=== PATIENT | male | born 1995 | race Caucasian/White ===

== ENCOUNTER 2018-06-06 10:00 | Emergency (ER) | payer OTHER ==
[2018-06-06] MEDS: NORCO, ANEXSIA 5/325MG TABLET (HYDROcodone/ACETAMINOPHEN) PO (10:17)
== END 2018-06-06 11:58 | disposition home or self-care (01) ==
LOC: M ED 10:00
DX: S76.011A Strain of muscle, fascia and tendon of right hip, initial encounter (principal); W01.0XXA Fall on same level from slipping, tripping and stumbling without subsequent striking against object, initial encounter; Y92.321 Football field as the place of occurrence of the external cause; Y93.61 Activity, american tackle football; F17.210 Nicotine dependence, cigarettes, uncomplicated
CPT/HCPCS: 76857

== ENCOUNTER 2018-07-12 22:27 | Emergency (ER) | payer OTHER ==
[2018-07-12] MEDS: MORPHINE 4 MG/ML 1ML VIAL/SYRINGE (J2270) IV (23:38)
== END 2018-07-13 00:57 | disposition home or self-care (01) ==
LOC: M ED 07-13 00:57
DX: S76.011A Strain of muscle, fascia and tendon of right hip, initial encounter (principal); S50.812A Abrasion of left forearm, initial encounter; S80.212A Abrasion, left knee, initial encounter; V28.4XXA Motorcycle driver injured in noncollision transport accident in traffic accident, initial encounter; Y92.410 Unspecified street and highway as the place of occurrence of the external cause
CPT/HCPCS: J2270

== ENCOUNTER 2019-08-14 12:23 | Emergency (ER) | payer OTHER ==
[~2019-08-14] VITALS: Ht 190.5 cm; Wt 85.5 kg
[~2019-08-14 12:23] MED LIST: NAPR-837 PO
--- NOTE | 2019-08-14 13:11 | REP ---
Right small finger series: Four views. History: Trauma. Findings: Four views of the right small finger demonstrate normal bones, joints and soft tissues. No fracture or subluxation is seen. No opaque foreign body noted. Impression: Negative radiographs of the right small finger. Electronically Signed by Chava Motley MD 08/14/2019 01:02 P
[2019-08-14 13:45] VITALS: BP 102/64
== END 2019-08-14 14:05 | disposition home or self-care (01) ==
LOC: M ED 12:23
DX: S63.636A Sprain of interphalangeal joint of right little finger, initial encounter (principal); X50.0XXA Overexertion from strenuous movement or load, initial encounter; Y93.61 Activity, american tackle football; Y92.321 Football field as the place of occurrence of the external cause

== ENCOUNTER → 2023-07-09 | Outpatient (REF) | LOC: M PLAIMG 09:19 | PROVIDERS: ATTEND Internal Medicine | DX: R06.02 Shortness of breath (principal) ==

== ENCOUNTER → 2023-09-15 | Outpatient (CLI) | payer OTHER | LOC: M PLAIMG 12:12 | PROVIDERS: ATTEND Nurse Practitioner Family | DX: R51.9 Headache, unspecified (principal); R09.81 Nasal congestion ==